=== PATIENT | male | born 1930 | race Two or more races ===

== ENCOUNTER 2016-08-19 01:50 | Inpatient (IN) | payer MEDICARE, BC ==
--- NOTE | ~2016-08-19 | CR72 ---
[facility] A Service of [facility] & [facility] / [facility] RADIOLOGY TEXT RESULTS PATIENT: NEVIN CUTLER LOCATION: [facility] - : [birth year] UNIT #: [id number] AGE: [address]: Angel Sinha MD SEX: M ORDER DR: [id number] [facility] [address] [facility]. [place], [place] [address] [id number] I MR#: [id number] Acc #: [id number] NAME: NEVIN CUTLER : 1930 SEX: M STUDY DATE/TIME: 08/19/2016 03:11 UNIT: [address] ROOM: [facility] STUDY DESCRIPTION: CR Chest Single View Portable Attending Physician: Candi Winkler M.D. Ordering Physician: Iftikhar Contreras M.D. Primary Care Physician: Primary Care Physician No MEDICAL IMAGING REPORT This report is preliminary unless electronic signature is present EXAM Portable chest, 08/19 at 03:11 INDICATION Syncope, shortness of air, weakness. Symptoms tonight. History of hypertension. FINDINGS AP portable chest was obtained. No comparison. Heart is enlarged. There is elevation of the right hemidiaphragm. The lungs are clear except for granulomatous calcification. No pneumothorax is seen. There is degenerative disease in the spine. IMPRESSION Cardiomegaly and old granulomatous disease. No acute findings in the chest. Dictated by... Kamran Herndon Jr., M.D. THIS IS AN ELECTRONICALLY VERIFIED REPORT Kamran Herndon Jr., M.D. at 08/19/2016 11:15 AM ALISA/hyun TD: 08/19/2016 08:35 JOB #: [id number] MEDICAL IMAGING REPORT Page 1 of 1 COPY
--- NOTE | ~2016-08-19 | EKG ---
PATIENT: NEVIN CUTLER UNIT #: [id number] Ventricular Rate: 67 BPM Atrial Rate: 67 BPM P-R Interval: 220 ms QRS Duration: 78 ms Q-T Interval: 434 ms QTC Calculation(Bezet): 458 ms P [place]: 29 degrees Calculated R [place]: -21 degrees Calculated T [place]: 11 degrees Diagnosis Line: Sinus rhythm with 1st degree A-V block Diagnosis Line: Low voltage QRS Diagnosis Line: Inferior infarct , age undetermined Diagnosis Line: Cannot rule out Anterior infarct , age Diagnosis Line: undetermined Diagnosis Line: Abnormal ECG Diagnosis Line: No previous ECGs available Diagnosis Line: Confirmed by NANCY POWERS MD ([id number]) on 08/19/2016 Diagnosis Line: 10:48:44 PM INTERPRETING MD: GIO EDWARD
--- NOTE | ~2016-08-19 | CT4 ---
[facility] A Service of [facility] & [facility] RADIOLOGY TEXT RESULTS PATIENT: NEVIN CUTLER LOCATION: [facility] - : [birth year] UNIT #: [id number] AGE: [address]: Angel Sinha MD SEX: M ORDER DR: [id number] [facility] [address] [facility]. [place], [place] [address] [id number] I MR#: [id number] #: [id number] NAME: NEVIN CUTLER : 1930 SEX: M STUDY DATE/TIME: 08/19/2016 UNIT: A U [facility]OM: [facility] STUDY DESCRIPTION: CT Abd and Pelv Wo Cont Attending Physician: Candi Winkler M.D. Ordering Physician: Iftikhar Contreras M.D. Primary Care Physician: Primary Care Physician No MEDICAL IMAGING REPORT This report is preliminary unless electronic signature is present EXAM Abdomen and pelvis CT 08/19 at 02:55 INDICATIONS GI bleed with bloody stools today. Syncopal and fall today with dizziness. TECHNIQUE Axial noncontrast images were obtained through the abdomen and pelvis. Multiplanar reformats were obtained. No comparison. The CT exam was performed with one or more of the following radiation dose reduction techniques: automatic exposure control, adjustment of mA and/or kV according to patient size, and iterative reconstruction. FINDINGS Abdomen: The heart is enlarged. There is atherosclerotic disease and fairly extensive coronary artery disease. There also some calcifications in the aortic valve which may indicate aortic stenosis. Visualized proximal aorta is dilated at 4.2 cm diameter. There is a 6 mm noncalcified nodule in the right middle lobe. There is a nearly 6 mm noncalcified nodule in the left lower lobe as well. A smaller noncalcified nodule noted right lower lobe. Chest CT recommended in 3 months for follow up purposes. Gallbladder is packed with stones but is otherwise normal. There is diffuse atherosclerotic disease, particularly evident at the left renal artery. No renal or ureteral stones are seen. No hydronephrosis. The unenhanced solid organs are grossly normal. No adenopathy is seen. There are scattered colonic diverticula. The GI tract is otherwise grossly normal. Pelvis: There is diffuse rectosigmoid diverticulosis. No definite focal diverticulitis is seen. Urinary bladder is normal. There are no lower STS. [facility] A Service of [facility] & [facility] RADIOLOGY TEXT RESULTS PATIENT: NEVIN CUTLER LOCATION: [facility] 334-01 : 29 UNIT #: [id number] AGE: [address]: Angel Sinha MD SEX: M ORDER DR: ureteral stones. No free fluid is seen. There are small fat-containing bilateral inguinal herniae. There is degenerative disease and scoliosis in the lumbar spine. IMPRESSION 1. Multiple noncalcified nodules in the lung bases. Chest CT follow up in 3 months recommended. 2. Uncomplicated cholelithiasis. 3. Atherosclerotic disease and coronary artery disease. 4. Aortic valvular calcification suggesting aortic stenosis. 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 This could be followed up on subsequent chest CT. 5. Colonic diverticulosis with no focal diverticulitis. 6. No renal or ureteral stones. No hydronephrosis. 7. Small fat-containing bilateral inguinal herniae. Dictated by... Kamran Herndon Jr., M.D. THIS IS AN ELECTRONICALLY VERIFIED REPORT Kamran Herndon Jr., M.D. at 08/19/2016 11:16 AM ALISA/juan TD: 08/19/2016 08:41 JOB #: [id number] MEDICAL IMAGING REPORT Page 1 of 1 COPY
--- NOTE | ~2016-08-19 | CO ---
Unit #: [id number] #: [id number] Patient: NEVIN CULTER [id number] [address] [place], [place] [address] [id number] I MR#: [id number] NAME: NEVIN CUTLER ROOM: 334 Age: 86 Sex: M Admission Date: 08/19/2016 : 1930 Attending Physician: Angel Sinha M.D. Primary Care Physician: Primary Care Physician No Consultation Date: 08/19/2016 CONSULTATION REPORT JOB NOTE: CC: DR. AURELIANO RAJAN. PRIMARY CARE PHYSICIAN Dr. Aureliano Rajan. REASON FOR CONSULTATION GI bleed. HISTORY OF PRESENT ILLNESS Mr. Vishal Lemon is a very pleasant 86-year-old gentleman of [place] origin. The patient saw me in the office. He was scheduled for an outpatient endoscopy and a colonoscopy on coming Friday, but ended up coming on Friday instead with a history of substantial GI bleed in the form of, he said he went to the bathroom multiple times in past, maroon colored stools followed by bright red blood. The patient also felt fatigued and tired. Upon admission, he had acute kidney injury as well as hemoglobin of 8.6. His baseline hemoglobin in the past has been 12.5. He also has history of near syncope at home. The patient lives with a girlfriend for more than 15 years, and speaks good [place], but he has quite a bit of deafness. He does mention some cramping in the lower abdomen. PAST MEDICAL HISTORY Significant for history of peptic ulcer disease; history of alcoholism, has been sober for 40 years; history of lower gastrointestinal bleed now and history of gastroesophageal reflux; anxiety; history of continued tobacco; chronic kidney disease, stage 4. He has had no prior surgeries. ALLERGIES He is not on any drug allergies. HOME MEDICATIONS Includes iron tablet and Klonopin. FAMILY HISTORY None of colon, pancreatic cancer, or liver disease. SOCIAL HISTORY He is , lives by himself. Own several rental properties. Does not drink. Has been abstinent of tobacco 40 years. Lives with a girlfriend. REVIEW OF SYSTEMS Detailed review of organ system reveals no abdominal pain. He does Unit #: [id number] #: [id number] Patient: NEVIN CUTLER mention hematochezia and possibly melena. No history of chest pain. There is history of syncope. No history of cough, expectoration, or hemoptysis. No history of dysuria, hematuria, or prior. No history of focal seizures or extremity weakness. Rest of the review of organ systems is unremarkable. PHYSICAL EXAMINATION GENERAL: He is alert and oriented, and appears pale. VITAL SIGNS: Stable with a temperature of 97.9, pulse 62 per minute and regular, respiratory rate is 18, blood pressure 130/64. He weighs 169 pounds. HEENT: He had moderate pallor. There being no icterus, lymphadenopathy, or peripheral edema. CARDIOVASCULAR: Normal heart sounds. No murmurs on auscultation. LUNGS: Reveal normal breath sounds. Good air entry. ABDOMEN: Soft and nontender. Liver and spleen are not palpable. Bowel sounds normal. DIAGNOSTIC STUDIES IMAGING STUDIES: Shows a CT scan of the abdomen shows the patient with multiple noncalcified nodules in the lungs, aortic calcification, colonic diverticulosis. LABORATORY RESULTS: In addition, his BUN and creatinine is 38 and 1.9 and this is stage 4 renal disease, which has been well known in the past. Albumin is 3.3. LFTs are normal. He has low iron and TIBC indicating anemia of chronic disease with or without iron deficiency anemia. INR is 1.1. CLINICAL IMPRESSION The patient with gastrointestinal bleed, anemia of acute gastrointestinal blood loss, possibly underlying chronic iron-deficiency anemia, and stage 4 chronic kidney disease. MANAGEMENT PLAN We will proceed with an upper endoscopy and we will evaluate it. In view of the unclear history, if the latter is normal, consider colonoscopy a day later. It is noteworthy that the patient was scheduled to have these exams on the coming Friday as an outpatient. Thank you very much for asking me to see this pleasant gentleman. I appreciated the consult. Dictated by... Raciel Ng/manas TD: 08/20/2016 03:08 JOB #: [id number] CC: Candi Winkler M.D. Unit #: [id number] #: [id number] Patient: NEVIN CUTLER CONSULTATION REPORT Page 1 of 1 X Long Arreola MD CONSULTATION REPORT
--- NOTE | ~2016-08-19 | OR ---
Unit #: [id number] #: [id number] Patient: NEVIN CUTLER [id number] [address] [address] [id number] I MR#: [id number] NAME: NEVIN CUTLER ROOM: [facility] Date of Procedure: 08/19/2016 Admission Date: 08/19/2016 Surgeon: Long Arreola M.D. : 1930 Attending Physician: Angel Sinha M.D. OPERATIVE REPORT PRIMARY CARE PHYSICIAN Dr. Aureliano Allen. PREOPERATIVE DIAGNOSES Gastrointestinal bleed and anemia of acute gastrointestinal blood loss. PROCEDURE PERFORMED Upper gastrointestinal endoscopy. POSTOPERATIVE DIAGNOSIS Completely normal examination up to third part of duodenum. RECOMMENDATIONS A colonoscopy is being scheduled and the patient will be reviewed thereafter. No potential source of blood loss or blood residue was seen in the upper gastrointestinal tract. SEDATION USED MAC. DESCRIPTION OF PROCEDURE Following detailed explanation of potential risks and complications of an upper GI endoscopy namely perforation, bleeding, and complications related to sedation, the patient was brought to GI lab and laid in the left lateral decubitus position. Lubricated tip of the Olympus video upper endoscope was passed through the bite block into the proximal esophagus under direct vision. Entire esophageal mucosa was examined and appeared normal. Z-line was nicely demarcated, there being no esophagitis or hiatus hernia. The scope was then advanced into the gastric cavity and the latter was insufflated. Mucosa of the fundus, body, and antrum was examined and appeared unremarkable. Pylorus was intubated with visualization of the normal duodenal bulb and second and third part of the duodenum. Upon withdrawal and retroflexion, incisura, cardia, and greater curve was examined and no additional findings were noted. The scope was then withdrawn in the distal esophagus. The entire esophageal mucosa was examined all the way up to pharynx. No additional findings were noted. The patient tolerated the procedure without any postprocedure complications. Dictated by... Long Arreola M.D. Unit #: [id number] #: [id number] Patient: NEVIN CUTLER YUKO/manas TD: 08/19/2016 23:41 JOB #: [id number] CC: Candi Winkler M.D. OPERATIVE REPORT Page 1 of 1 X Long Arreola MD PROCEDURE OPERATIVE NOTE
--- NOTE | ~2016-08-19 | DS ---
Unit #: [id number] #: [id number] Patient: NEVIN CUTLER [id number] [address] [place], [place] [address] [id number] I MR#: [id number] NAME: NEVIN CUTLER ROOM: 334 Age: 86 Sex: M Admission Date: 08/19/2016 : 1930 Discharge Date: 08/22/2016 Attending Physician: Angel Sinha M.D. DISCHARGE SUMMARY PRIMARY CARE PHYSICIAN Dr. Allen. DISCHARGE DIAGNOSES 1. Diverticular bleed. 2. Acute blood loss anemia, status post 3 units of packed red blood cells transfusion. 3. Chronic kidney disease, stage 4. 4. Gastroesophageal reflux disease. 5. Anxiety. 6. Dyslipidemia, on statin therapy. 7. Essential hypertension. Blood pressure has been stable throughout this hospitalization. 8. Noncalcified pulmonary nodules. Repeat CT in 3 months is recommended. 9. Proximal ascending aorta dilated 4.[address] followup is recommended. SENIOR ADULTS DIRECTOR Dr. Arreola of Gastroenterology. PROCEDURE The patient had an EGD by Dr. Arreola on 08/19/2016, where it was found to have completely normal examination up to the third part of the duodenum and a colonoscopy done on 08/19/2016 with findings of marked pandiverticulosis, fresh blood residue throughout the entire colon, terminal ileum itself appeared normal, no blood residue in this area, single sessile polyp was noted in the cecum, it was about 1.5 cm in size, it was removed. Etiology was diverticular hemorrhage which resolved under endoscopy. DIAGNOSTIC STUDIES IMAGING STUDIES: CT of abdomen and pelvis on 08/19/2016, impression; multiple noncalcified nodules in the lung base. Chest CT followup in 3 months recommended. Uncomplicated cholelithiasis. Atherosclerotic disease and coronary artery disease, aortic valvular calcification suggesting aortic stenosis. 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 suggested colonic diverticulosis with no focal diverticulitis. No renal or ureteral stent. No hydronephrosis. Small fat containing bilateral inguinal hernia. Chest x-ray on 08/19/2016, impression; cardiomegaly and old granulomatous disease. No acute findings in the chest. LABORATORY RESULTS: On the day of discharge: BMP; glucose 105, BUN 17, Unit #: [id number] #: [id number] Patient: NEVIN CUTLER creatinine 1.7, sodium 143, potassium 3.8, chloride 116, CO2 of 22, calcium 8.4, magnesium 1.7. CBC with WBC of 7.9, RBC 2.53, hemoglobin 8.5, hematocrit 25.2, MCV 94.2, MCH 31.6, MCHC 33.5, RDW 14.2, platelets of 144, MPV 7.8. HOSPITAL COURSE The patient is a pleasant 86-year-old male with past medical history of prior alcohol use, sober for over 3 years, peptic ulcer disease, acid reflux disease, anxiety, prior history of tobacco use, chronic kidney disease, who presented to the emergency department due to rectal bleeding and dizziness sensation. The patient had noticed 4 bowel movements approximately every 30 to 40 minutes with bright red blood in the toilet bowl as well as some maroon colored stool. The patient does have associated abdominal cramp, but no true abdominal pain. The patient stated he had a similar episode about 4 months ago and did not seek medical attention. The patient stated upon standing itself is lightheaded and thought that he was going pass out. He was caught by EMS and brought him to the emergency department, where he had grossly Heme positive stool. He was given Protonix, 1 L of normal saline, and he was admitted for acute GI bleed as well as acute blood loss anemia. Dr. Arerola was consulted who had performed an upper endoscopy which was essentially normal and following that had a colonoscopy which found that the patient had diverticular bleed and fresh blood, but no active site of bleeding at the time that the endoscopy was done. It was thought the patient was stable for discharge following the colonoscopy and the patient has been monitored for the past 24 hours. The patient's lowest hemoglobin was 8.0 and subsequently trending of that came up to 8.5 without the additional need for transfusion. Of note, the patient's lowest hemoglobin was 7.4 during this hospitalization. The patient did receive 2 units of blood transfusion. With that, hemoglobin reading at this time with a hemoglobin of 8.5. We would transfusion an additional unit of blood. Following that, the patient may be discharged home with oral iron supplement. The patient will be consulted on any additional episodes of GI bleed to present to his family physician's office or to come to the emergency department for recheck of an H and H and transfusion if needed. With regard to the patient's chronic kidney disease stage 4, his home management of lisinopril with hydrochlorothiazide is held. I will be giving the patient a prescription for lisinopril 10 mg to use, but I do not think he needs any additional hydrochlorothiazide at this time. The patient's chronic kidney disease unsure of staging truly. He presents with a hemoglobin of 2.1 which was consistent to that 3 years ago at 2.2, but with fluid hydration his creatinine did decrease to 1.7. I have recommend that the patient followup with the family doctor for any further assessment of his kidney disease. Of note, from the CT abdomen and pelvis, we had an incidental finding of noncalcified pulmonary nodules and I am recommending the patient followup with primary care physician for repeat scanning in 3 months for this. The patient was also found to have an additional incidental finding of a proximal ascending aorta dilated to at least 4.2 cm. The patient should follow up with CT for further evaluation. I will be giving the patient vascular surgeries information, so that they can trend the patient for his aneurysm and to follow him as needed. DISCHARGE CONDITION Stable to home. ACTIVITIES No restricted activities. Unit #: [id number] #: [id number] Patient: NEVIN CUTLER Has received heart healthy diet as of prior to hospitalization. DISCHARGE MEDICATIONS The patient to stop lisinopril and hydrochlorothiazide combination and to start lisinopril 10 mg orally daily, Klonopin 0.5 mg t.i.d., Lipitor 20 mg orally daily, iron 325 mg orally daily. I would not recommend the patient to continue with ibuprofen at this time. Protonix 40 mg orally daily, MiraLAX 17 g orally daily. Dictated by... uRbia Vasquez PA-C for Raciel Ray/manas TD: 08/25/2016 04:44 JOB #: [id number] DISCHARGE SUMMARY Page 1 of 1 X X DISCHARGE SUMMARY
--- NOTE | ~2016-08-19 | OR ---
Unit #: [id number] #: [id number] Patient: NEVIN CUTLER [id number] [address] [place], [place] [address] [id number] I MR#: [id number] NAME: NEVIN CUTLER ROOM: [facility] Date of Procedure: 08/21/2016 Admission Date: 08/19/2016 Surgeon: Long Arreola M.D. : 1930 Attending Physician: Angel Sinha M.D. OPERATIVE REPORT PRIMARY CARE PHYSICIAN Dr. Aureliano Allen. PREOPERATIVE DIAGNOSIS Lower gastrointestinal bleed. PROCEDURES PERFORMED Colonoscopy and polypectomy. POSTOPERATIVE DIAGNOSES 1. The patient had moderate pandiverticulosis. 2. There was fresh blood residue throughout the entire colon. 3. The terminal ileum itself appeared normal. There being no blood residue in this area. 4. A single sessile polyp was noted in the cecum. This was about 1.5 cm in size. It was removed using snare cautery polypectomy. 5. The most likely etiology of the patient's bleed is diverticular hemorrhage, which is now resolved. RECOMMENDATIONS We will monitor the hemoglobin and hematocrit and consider sending home once the hemoglobin is stable for 24 hours. SEDATION USED MAC. DESCRIPTION OF PROCEDURE Following detailed explanation of potential risks and complications of a colonoscopy, namely perforation, bleeding, and complication related to sedation, the patient was brought to GI lab and laid in the left lateral decubitus position. A digital rectal examination was performed, which was normal. Lubricated tip of the Olympus video colonoscope was inserted through the anus and advanced under direct vision. The scope was advanced past rectosigmoid into descending colon. Multiple medium-sized diverticula were noted in this area. In addition, fresh blood residue was also noted throughout the entire colon. The scope tip was then navigated all the way up to cecum with visualization of the ileocecal valve and the appendiceal orifice. Preparation was excellent with good visualization and photodocumentation was obtained. Last several inches of the terminal ileum were also visualized after intubation of the ileocecal valve and appeared normal. Successive segments of the colonic mucosa were examined upon withdrawal. A single sessile polyp was noted in the cecum. This was Unit #: [id number] #: [id number] Patient: NEVIN CUTLER about 1.5 cm in size. It was removed using snare cautery polypectomy. The polyp was retrieved and sent for histology. Excellent hemostasis was achieved and photodocumentation was obtained. Successive segments of the colonic mucosa were examined upon withdrawal and appeared unremarkable except for presence of pandiverticulosis and blood residue throughout the colon. No area of active bleeding was noted. Very careful lavage of each segment of colon was done to visualize any bleeder and none was seen. No additional polyps were seen. The patient also did not have any angiodysplasias. No hemorrhoids were noted at the anal verge. The scope was then withdrawn and the patient returned to the recovery area. He tolerated the procedure without any postprocedure complications. Dictated by... Raciel Ng/manas TD: 08/21/2016 22:48 JOB #: [id number] OPERATIVE REPORT Page 1 of 1 X Long Arreola MD X PROCEDURE OPERATIVE NOTE
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
[~2016-08-19 01:50] MED LIST: ACETAMINOPHEN PO; ALEVE220 M1 PO; ALLEVE PO; ALLEVIATE PO; CALCIUM 1,0001 EACH PO; CALCIUM PO; GARLIC PO; GARLIC1 CAP PO; GINKGO PO; GINKGO60 MG PO; GLUCOSAMINE CHO1 CA3 PO; GLUCOSAMINE CHONDROI PO; HIGH POTENCY B1 TAB PO; IRON325 MG PO; KLONOPIN0.5 MG PO; TYLENOL PO; VIT B PO; VIT E PO; VITAMIN E400 UNI4 PO
[2016-08-19 02:24] LABS: BASOPHIL% 0.2 % (0-2.5); DIFF IND NO; EOSINOPHIL# 0.1 X10e3 (0-0.7); EOSINOPHIL% 0.6 % (0.0-7.0); HEMATOCRIT 29.2 % (38.0-50.0); HEMOGLOBIN 9.4 gm/dL (13.0-16.0); LYMPHOCYTE# 1.5 X10e3 (1.0-3.5); LYMPHOCYTE% 15.6 % (17.0-45.0); MEAN CELL VOLUME 96.9 FL (83-96); MEAN CORPUSCULAR HEMOGLOBIN 31.3 PG (28-34); MEAN CORPUSCULAR HGB CONC 32.2 g/dL (30-36); MEAN PLATELET VOLUME 7.9 FL (6.5-11.5); MONOCYTE# 0.7 X10e3 (0-1.0); MONOCYTE% 7.1 % (3.0-12.0); NEUTROPHIL# 7.6 X10e3 (1.5-7.1); NEUTROPHIL% 76.5 % (40-75); PLATELET COUNT 193 X10e3 (140-420); RED BLOOD COUNT 3.01 X10e (3.90-5.60); RED CELL DISTRIBUTION WIDTH 13.9 % (11.0-15.5); WHITE BLOOD COUNT 9.9 X10e3 (4.0-10.5)
[2016-08-19 02:34] LABS: POC - CKMB <1.0 ng/mL (0.0-7.9); POC - TROPONIN <0.05 ng/mL (<=0.05)
[2016-08-19 02:42] LABS: INR 1.1; PARTIAL THROMBOPLASTIN TIME 22.6 SECONDS (23.5-31.3); PROTHROMBIN TIME (PATIENT) 11.2 SECONDS (9.6-11.5)
[2016-08-19 02:43] LABS: ALBUMIN SERUM 3.3 g/dL (3.5-5.0); BILIRUBIN,TOTAL 0.7 mg/dL (0.2-2.0); BUN/CREATININE RATIO 20.47; CALCIUM SERUM 8.5 mg/dL (8.4-10.2); CREATININE SERUM 2.1 mg/dL (0.6-1.4); GLOM FILT RATE Estimated 27.5 mL/min (>60); POTASSIUM 4.1 mmol/L (3.5-5.1); PROTEIN TOTAL SERUM 6.5 g/dL (6.0-8.3)
[2016-08-19 02:45] LABS: BILIRUBIN, DIRECT 0.1 mg/dL (0.0-0.2); BILIRUBIN,INDIRECT 0.6 mg/dL (0.0-0.9)
[2016-08-19 04:30] LABS: HEMATOCRIT 28.1 % (38.0-50.0); HEMOGLOBIN 9.2 gm/dL (13.0-16.0)
[2016-08-19 07:34] LABS: BASOPHIL% 0.2 % (0-2.5); EOSINOPHIL# 0.1 X10e3 (0-0.7); EOSINOPHIL% 0.6 % (0.0-7.0); HEMATOCRIT 26.7 % (38.0-50.0); HEMOGLOBIN 8.6 gm/dL (13.0-16.0); LYMPHOCYTE# 1.8 X10e3 (1.0-3.5); LYMPHOCYTE% 22.9 % (17.0-45.0); MEAN CELL VOLUME 97.4 FL (83-96); MEAN CORPUSCULAR HEMOGLOBIN 31.5 PG (28-34); MEAN CORPUSCULAR HGB CONC 32.3 g/dL (30-36); MONOCYTE# 0.6 X10e3 (0-1.0); MONOCYTE% 7.9 % (3.0-12.0); NEUTROPHIL# 5.5 X10e3 (1.5-7.1); NEUTROPHIL% 68.4 % (40-75); PLATELET COUNT 177 X10e3 (140-420); RED BLOOD COUNT 2.74 X10e (3.90-5.60); RED CELL DISTRIBUTION WIDTH 13.8 % (11.0-15.5)
[2016-08-19 07:43] LABS: DIFF IND NO
[2016-08-19 08:02] LABS: CALCIUM SERUM 8.4 mg/dL (8.4-10.2); CREATININE SERUM 1.9 mg/dL (0.6-1.4); POTASSIUM 4.3 mmol/L (3.5-5.1)
[2016-08-19 08:23] LABS: IRON SERUM 24 ug/dL (45-182); TOTAL IRON BINDING CAPACITY 233 ug/dL (252-460); TRANSFERRIN 167 mg/dL (180-329); TRANSFERRIN SATURATION 10 % (20-50)
[2016-08-19 08:41] LABS: FOLATE (FOLIC ACID) >23.6 ng/mL (>5.8)
[2016-08-19] MEDS ORDERED: LIPITOR20 MG PO (09:25)
[2016-08-19] MEDS ORDERED: IBUPROFEN IB200 M1 PO (09:25)
[2016-08-19] MEDS ORDERED: ZESTORETIC 20-1 EAC1 PO (09:26)
[2016-08-19 12:54] LABS: HEMATOCRIT 27.9 % (38.0-50.0); HEMOGLOBIN 8.9 gm/dL (13.0-16.0)
[2016-08-20 04:22] LABS: HEMOGLOBIN 7.4 gm/dL (13.0-16.0); MEAN CELL VOLUME 97.1 FL (83-96); MEAN CORPUSCULAR HEMOGLOBIN 31.4 PG (28-34); MEAN CORPUSCULAR HGB CONC 32.3 g/dL (30-36); MEAN PLATELET VOLUME 8.2 FL (6.5-11.5); RED BLOOD COUNT 2.37 X10e (3.90-5.60); RED CELL DISTRIBUTION WIDTH 13.9 % (11.0-15.5); WHITE BLOOD COUNT 6.7 X10e3 (4.0-10.5)
[2016-08-20 04:41] LABS: BILIRUBIN,TOTAL 0.5 mg/dL (0.2-2.0); BUN/CREATININE RATIO 15.55; CALCIUM SERUM 8.2 mg/dL (8.4-10.2); CREATININE SERUM 1.8 mg/dL (0.6-1.4); GLOM FILT RATE Estimated 33.1 mL/min (>60); MAGNESIUM 1.6 mg/dL (1.6-3.0); PROTEIN TOTAL SERUM 5.6 g/dL (6.0-8.3)
[2016-08-20 22:44] LABS: HEMOGLOBIN 10.9 gm/dL (13.0-16.0)
[2016-08-21 06:28] LABS: HEMATOCRIT 25.8 % (38.0-50.0)
[2016-08-21 06:33] LABS: HEMOGLOBIN 8.6 gm/dL (13.0-16.0)
[2016-08-21 07:49] LABS: BUN/CREATININE RATIO 13.75; CALCIUM SERUM 8.1 mg/dL (8.4-10.2); CREATININE SERUM 1.6 mg/dL (0.6-1.4); GLOM FILT RATE Estimated 38.2 mL/min (>60); MAGNESIUM 1.9 mg/dL (1.6-3.0); POTASSIUM 3.8 mmol/L (3.5-5.1)
[2016-08-21 14:06] LABS: HEMATOCRIT 27.2 % (38.0-50.0); MEAN CELL VOLUME 96.1 FL (83-96); MEAN CORPUSCULAR HEMOGLOBIN 31.7 PG (28-34); MEAN PLATELET VOLUME 8.2 FL (6.5-11.5); RED BLOOD COUNT 2.83 X10e (3.90-5.60); RED CELL DISTRIBUTION WIDTH 14.4 % (11.0-15.5); WHITE BLOOD COUNT 6.2 X10e3 (4.0-10.5)
[2016-08-21 22:44] LABS: HEMOGLOBIN 8.3 gm/dL (13.0-16.0)
[2016-08-22 06:20] LABS: HEMATOCRIT 23.8 % (38.0-50.0); MEAN CELL VOLUME 94.2 FL (83-96); MEAN CORPUSCULAR HEMOGLOBIN 31.6 PG (28-34); MEAN CORPUSCULAR HGB CONC 33.5 g/dL (30-36); MEAN PLATELET VOLUME 7.8 FL (6.5-11.5); RED BLOOD COUNT 2.53 X10e (3.90-5.60); RED CELL DISTRIBUTION WIDTH 14.2 % (11.0-15.5); WHITE BLOOD COUNT 7.9 X10e3 (4.0-10.5)
[2016-08-22 06:54] LABS: CALCIUM SERUM 8.4 mg/dL (8.4-10.2); CREATININE SERUM 1.7 mg/dL (0.6-1.4); GLOM FILT RATE Estimated 35.5 mL/min (>60); MAGNESIUM 1.7 mg/dL (1.6-3.0); POTASSIUM 3.8 mmol/L (3.5-5.1)
[2016-08-22 10:59] LABS: HEMATOCRIT 25.2 % (38.0-50.0); HEMOGLOBIN 8.5 gm/dL (13.0-16.0)
[2016-08-22] MEDS ORDERED: MIRALAX17 GM PO (14:22)
[2016-08-22] MEDS ORDERED: PROTONIX PO (14:22)
[2016-08-22] MEDS ORDERED: LISINOPRIL PO (14:22)
[2016-08-22 14:26] LABS: HEMATOCRIT 26.9 % (38.0-50.0); HEMOGLOBIN 8.9 gm/dL (13.0-16.0)
[2016-08-22 20:34] LABS: HEMOGLOBIN 10.1 gm/dL (13.0-16.0)
== END 2016-08-22 21:00 | disposition home or self-care (01) | DRG 378 ==
LOC: CED 01:50 → CEDOF 03:50 → C3A PCU 08:35
PROVIDERS: Emergency Medicine; Family Medicine; Internal Medicine; Internal Medicine Gastroenterology; Physician Assistant Medical
PROC: 0DJ08ZZ Inspection of Upper Intestinal Tract, Via Natural or Artificial Opening Endoscopic (ICD-10-PCS; 2016-08-19)
PROC: 30233N1 Transfusion of Nonautologous Red Blood Cells into Peripheral Vein, Percutaneous Approach (ICD-10-PCS; 2016-08-20)
PROC: 0DBH8ZX Excision of Cecum, Via Natural or Artificial Opening Endoscopic, Diagnostic (ICD-10-PCS; principal; 2016-08-21 10:43)
DX: K57.31 Diverticulosis of large intestine without perforation or abscess with bleeding (principal); D62 Acute posthemorrhagic anemia; N18.4 Chronic kidney disease, stage 4 (severe); N17.9 Acute kidney failure, unspecified; I12.9 Hypertensive chronic kidney disease with stage 1 through stage 4 chronic kidney disease, or unspecified chronic kidney disease; Z87.891 Personal history of nicotine dependence; K21.9 Gastro-esophageal reflux disease without esophagitis; F41.9 Anxiety disorder, unspecified; E78.5 Hyperlipidemia, unspecified; K27.9 Peptic ulcer, site unspecified, unspecified as acute or chronic, without hemorrhage or perforation; R55 Syncope and collapse; F10.21 Alcohol dependence, in remission; R91.8 Other nonspecific abnormal finding of lung field; I77.819 Aortic ectasia, unspecified site
CPT/HCPCS: 36415; 71010; 74176; 80048; 80053; 80076; 82553; 82607; 82746; 83540; 83550; 83735; 84484; 85014; 85018; 85025; 85027; 85610; 85730; 86850; 86900; 86901; 86923; 88305; 93005; 94760; 96361; 96374; 96375; 97161; 97165; 99291; C9113; G8978-GP; G8979-GP; G8980-GP; G8987-GO; G8988-GO; G8989-GO; J2405; J3475; P9016